=== PATIENT | male | born 1940 | race Asian ===

== ENCOUNTER 2021-09-04 05:55 | Day surgery (SDC) | payer MEDICARE, OTHER ==
[2021-08-29 10:29] LABS: BASOPHILS % (AUTO) 0.7 % (0-1); EOSINOPHILS # (AUTO) 0.2 X10'3 (0-0.9); EOSINOPHILS % (AUTO) 2.7 % (0-6); LYMPHOCYTES # (AUTO) 1.5 X10'3 (1.1-4.8); LYMPHOCYTES % (AUTO) 25.6 % (21-51); MEAN CORPUSCULAR HEMOGLOBIN 34.5 PG (27.0-31.0); MEAN CORPUSCULAR HGB CONC 35.2 g/dL (33.0-36.5); MEAN CORPUSCULAR VOLUME 98.1 FL (78-98); MEAN PLATELET VOLUME 7.5 FL (7.4-10.4); MONOCYTES # (AUTO) 0.6 X10'3 (0-0.9); MONOCYTES % (AUTO) 9.5 % (2-12); NEUTROPHILS # (AUTO) 3.7 X10'3 (1.8-7.7); NEUTROPHILS % (AUTO) 61.5 % (42-75); PRE OP HEMATOCRIT 42.9 % (42.0-52.0); PRE OP HEMOGLOBIN 15.1 g/dL (14.0-17.9); PRE OP PLATELET COUNT 183 X10'3 (140-440); RED BLOOD COUNT 4.38 X10'6 (4.70-6.10); RED CELL DISTRIBUTION WIDTH 13.2 % (11.5-14.5)
[2021-08-29 10:37] LABS: PARTIAL THROMBOPLASTIN TIME 27 SECONDS (22-32)
[2021-08-29 10:56] LABS: TOTAL CARBON DIOXIDE 26.8 MMOL/L (24-32)
[2021-08-29 11:30] LABS: ALBUMIN 3.4 G/DL (3.4-5.0); ALBUMIN/GLOBULIN RATIO 0.9 (1.1-1.5); ALKALINE PHOSPHATASE 96 IU/L (46-116); BLOOD UREA NITROGEN 27 MG/DL (7-18); BUN/CREATININE RATIO 13.8 (5.4-32.0); CALCIUM 9.1 MG/DL (8.5-10.1); CHLORIDE 106 MMOL/L (99-107); CREATININE 1.96 MG/DL (0.60-1.10); PRE OP ANION GAP 10 (8-16); PRE OP BILIRUB, TOTAL 0.5 MG/DL (0.0-1.0); PRE OP SODIUM 141 MMOL/L (135-145); TOTAL PROTEIN 7.4 G/DL (6.4-8.2); eGFR 33 ML/MIN
[2021-08-29 11:33] LABS: PRE OP GLUCOSE 114 MG/DL (70-104); PRE OP POTASSIUM 4.5 MMOL/L (3.4-5.1)
[2021-08-29 11:54] LABS: PRE OP ALT 55 U/L (30-65); PRE OP AST 37 U/L (10-37)
[~2021-09-04] VITALS: Ht 167.6 cm; Wt 96.0 kg
[2021-09-04] VITALS (10 sets, daily range): BP systolic 108–142; BP diastolic 59–89
[~2021-09-04 05:55] MED LIST: APIX5TAB3 PO; ASCO-139 PO; ATOR-2 PO; CARV-49 PO; CHOL500049 PO; CYAN100T47 PO; LORA-641 PO; LOSA25TA41 PO; MULT-1085 PO; OMEG-79 PO; PANT-47 PO; SPIR25TA5 PO; VITA1TAB37 PO; ZINC50TA67 PO; cefazolin/dext.iso 2gm/50ml IV ONE; famotidine 20mg tablet PO ONE; ringers solution, lacted 1,000 ML IV SCH; vancomycin 1,500 MG in NS 300ml IV soln IV ONE
[2021-09-04] MEDS ORDERED: LIDOcaine 1% (10mg/ml) 2ml vial ONE (06:48)
[2021-09-04] MEDS ORDERED: BUPIVAcaine/PF 2.5mg/ml (0.25%) 10ml vial ONE ×2 (07:00→08:12)
[2021-09-04] MEDS ORDERED: hydrALAZINE 20mg/ml inj. IV PRN (07:15)
[2021-09-04] MEDS ORDERED: fentaNYL/PF 50MCG/1 ML 2ML syringe IV PRN ×2 (07:15)
[2021-09-04] MEDS ORDERED: ondansetron/PF 4mg/2ml inj IV PRN (07:15)
[2021-09-04] MEDS ORDERED: ringers solution, lacted 1,000 ML IV SCH (07:15)
[2021-09-04] MEDS ORDERED: morphine 4 MG/ML inj SYRINge IV PRN (07:15)
[2021-09-04] MEDS ORDERED: labetalol 20mg/4ml (5mg/ml) syringe IV PRN (07:15)
[2021-09-04] MEDS ORDERED: morphine 2 MG/ML inj. syringe IV PRN (07:15)
[2021-09-04] MEDS ORDERED: LIDOcaine 0.5% (5mg/ml) 50ml vial ONE (07:18)
[2021-09-04] MEDS ORDERED: MIDAZolam 1mg/ml 10ml vial ONE (07:21)
[2021-09-04] MEDS ORDERED: fentaNYL/PF 50MCG/1 ML 2ML syringe ONE (07:21)
[2021-09-04] MEDS ORDERED: ROPIVAcaine 0.5% (5mg/ml) 30ml vial ONE (07:22)
[2021-09-04] MEDS ORDERED: labetalol 20mg/4ml (5mg/ml) syringe IV ONE (07:36)
[2021-09-04] MEDS ORDERED: gelatin sponge, absorbable (Gelfoam 100) sponge TP ONE (08:18)
[2021-09-04] MEDS ORDERED: Thrombin (Bovine) 5,000 unit vial TP ONE (08:18)
--- NOTE | 2021-09-04 08:53 | NUR ---
Received from OR via [facility], accompanied by Anesthesiologist DR OSPINA and report given by Anesthesiologist. 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 Addendum: 09/04/21 at 0917 by Joselin Lowery RN Amended: Links added.
--- NOTE | 2021-09-04 10:23 | NUR ---
PT UP AND ABLE TO AMBULATE SAFELY, D/C INSTRUCTIONS GIVEN AND GONE OVER W/PT WHO VERBALIZED UNDERSTANDING. PT D/CD TO HOME VIA W/C TO PRIVATE VEHICLE W/O INCIDENT. Addendum: 09/04/21 at 1052 by Joselin Lowery RN Amended: Links added.
== END 2021-09-04 10:23 | disposition home or self-care (01) ==
LOC: PAS 05:55
PROVIDERS: ATTEND Orthopaedic Surgery
DX: M20.092 Other deformity of left finger(s) (principal); I25.10 Atherosclerotic heart disease of native coronary artery without angina pectoris; I10 Essential (primary) hypertension; I25.2 Old myocardial infarction; G62.9 Polyneuropathy, unspecified; E66.9 Obesity, unspecified; Z68.34 Body mass index [BMI] 34.0-34.9, adult; Z79.899 Other long term (current) drug therapy; Z20.822 Contact with and (suspected) exposure to COVID-19; Z79.01 Long term (current) use of anticoagulants; Z98.890 Other specified postprocedural states; Z95.1 Presence of aortocoronary bypass graft; Z87.891 Personal history of nicotine dependence
CPT/HCPCS: 26910; 36415; 80053; 82948; 85025; 85610; 85730; A6223; J2001; J2250; J3010; J3370; J3490; J7040; U0003; U0005; Z7506; Z7508; Z7512; A4215; A4618; A6449; A7000; J2795; J7120